=== PATIENT | male | born 1970 | race Caucasian/White ===

== ENCOUNTER 2018-04-06 16:21 | Emergency (ER) | payer BC ==
[~2018-04-06] VITALS: Ht 177.8 cm; Wt 102.1 kg
[2018-04-06 16:21] VITALS: BP_SYST 149
--- NOTE | 2018-04-06 16:22 | NUR ---
Patient to ER bed 5 to gown for evaluation. Side rails up.
--- NOTE | 2018-04-06 16:30 | NUR ---
Patient's Left foot placed over pillow for elevation. Ice applied.
--- NOTE | 2018-04-06 16:35 | NUR ---
Pt presents to ER c/o L foot pain 5/10 on pain scale. Pt reports that swelling began last night, denies any trauma to L foot. L foot presents with mild erythema and swelling. Pt still able to ambulate on L foot. Pt in no acute respiratory distress, speaking full sentences, AOX4, family at bedside.
--- NOTE | 2018-04-06 16:45 | NUR ---
ER at bedside examining patient.
[2018-04-06 17:05] VITALS: BP_SYST 149
--- NOTE | 2018-04-06 17:05 | NUR ---
Patient given written and verbal discharge instructions and verbalizes understanding. ER MD discussed with patient the results and treatment provided. Patient in stable condition. ID arm band removed. Rx of Keflex, Bactrim, Motrin given. Patient educated on pain management and to follow up with PMD. Pain Scale 3/10. Opportunity for questions provided and answered. Medication side effect fact sheet provided.
== END 2018-04-06 17:05 | disposition home or self-care (01) ==
LOC: SED 16:21
DX: L03.116 Cellulitis of left lower limb (principal); F17.210 Nicotine dependence, cigarettes, uncomplicated; R03.0 Elevated blood-pressure reading, without diagnosis of hypertension; Z90.89 Acquired absence of other organs
CPT/HCPCS: 99283